=== PATIENT | female | born 1995 | race American Indian/Alaskan Native ===

== ENCOUNTER 2019-01-13 15:19 | Emergency (ER) | payer BC ==
--- NOTE | 2019-01-13 17:57 | Emergency Department Report ---
Chief Complaint: Abdominal Pain Stated Complaint: BLOOD IN STOOL/RT SIDE BACK PAIN Time Seen by Provider: 01/13/19 17:56 - HPI History of Present Illness: bloody stool r flank pain rx vitamin pmh none psh none lmp end dec mse completed MSE screening note: Focused history and physical exam performed. Due to findings the following was ordered: ED Disposition for MSE Condition: Stable Instructions: Abdominal Pain (ED) Referrals: AYDIN GREEN MD [Primary Care Provider] - 3-5 Days
[2019-01-13 18:28] LABS: Hematocrit 41.6 % (30.3-42.9); Hemoglobin 14.2 gm/dl (10.1-14.3); Mean Corpuscular HGB Conc 34 % (30-34); Mean Corpuscular Volume 91 fl (79-97); Platelet Count 359 K/mm3 (140-440); Red Blood Count 4.57 M/mm3 (3.65-5.03); Red Cell Distribution Width 12.8 % (13.2-15.2)
[2019-01-13 18:32] LABS: Bacteria,Urine 1+ /HPF (Negative); Bilirubin,Urine NEG (Negative); Blood,Urine NEG (Negative); Color,Urine Yellow (Yellow); Mucus,Urine FEW /HPF; Protein,Urine <15 mg/dL mg/dL (Negative); Urobilinogen,Urine < 2.0 mg/dL (<2.0)
[2019-01-13 18:36] LABS: HCG Qualitative,Urine Negative (Negative)
[2019-01-13 18:42] LABS: Alanine Aminotransferase 12 units/L (7-56); Albumin 4.5 g/dL (3.9-5); BUN/Creatinine Ratio 11; Blood Urea Nitrogen 8 mg/dL (7-17); Calcium 9.3 mg/dL (8.4-10.2); Hemolysis Index 5
--- NOTE | 2019-01-13 20:30 | Emergency Department Report ---
ED Abdominal Pain HPI - General Chief Complaint: Abdominal Pain Stated Complaint: BLOOD IN STOOL/RT SIDE BACK PAIN Time Seen by Provider: 01/13/19 17:56 Source: patient Mode of arrival: Ambulatory Limitations: No Limitations - History of Present Illness Initial Comments: pt is a 24 y/o aaf who presents for blood streak to stool x 1 today, pt deneis fever or chills no n/v not sure if hx of hemorrhoids no bleeding since initial episode this am, pt is tolerating po intake without symptoms at this time. pt appears well well hydrated nontoxic no abd tenderness MD Complaint: other (blood to stool this am x 1 ) Onset/Timin -: days(s) Radiation: none Migration to: no migration Severity: mild Severity scale (0 -10): 1 Consistency: other (once ) Improves With: nothing Worsens With: nothing Context: other (blood in stool x 1 no other symptoms ) Associated Symptoms: denies: nausea, vomiting, diarrhea, fever, chills, constipation, dysuria, hematemesis, hematochezia, melena, hematuria, anorexia, syncope Treatments Prior to Arrival: NSAIDs (1 one on yesterday no hx of problem with nsaids ) - Related Data LMP Date: 01/05/19 Previous Rx's Medication Instructions Recorded Last Taken Type HYDROcodone/APAP 5-325 [[place] 1 each PO Q6HR PRN #20 tablet 08/25/18 Unknown Rx 5/325] Ibuprofen [Motrin] 800 mg PO Q8HR PRN #30 tablet 08/25/18 Unknown Rx Polyethylene Glycol 3350 [Miralax 17 gm PO BID PRN #14 packet 01/13/19 Unknown Rx 3350] Allergies Allergy/AdvReac Type Severity Reaction Status Date / Time No Known Allergies Allergy Verified 08/23/18 22:56 ED Review of Systems ROS: Stated complaint: BLOOD IN STOOL/RT SIDE BACK PAIN Other details as noted in HPI Constitutional: denies: chills, fever Eyes: denies: eye pain, eye discharge, vision change ENT: denies: ear pain, throat pain Respiratory: denies: cough, shortness of breath, wheezing Cardiovascular: denies: chest pain, palpitations Endocrine: no symptoms reported Gastrointestinal: denies: abdominal pain, nausea, vomiting, diarrhea, constipation, hematemesis, melena, hematochezia Genitourinary: denies: urgency, dysuria, discharge Musculoskeletal: denies: back pain, joint swelling, arthralgia Skin: denies: rash, lesions Neurological: denies: headache, weakness, paresthesias Psychiatric: denies: anxiety, depression Hematological/Lymphatic: denies: easy bleeding, easy bruising ED Past Medical Hx - Past Medical History Previous Medical History?: No Hx Hypertension: No Hx Heart Attack/AMI: No Hx Congestive Heart Failure: No Hx Diabetes: No Hx Deep Vein Thrombosis: No Hx Renal Disease: No Hx Sickle Cell Disease: No Hx Seizures: No Hx Asthma: No Hx COPD: No - Surgical History Past Surgical History?: No - Social History Smoking Status: Never Smoker Substance Use Type: Alcohol - Medications Home Medications: Home Medications Medication Instructions Recorded Confirmed Last Taken Type HYDROcodone/APAP 5-325 [[place] 1 each PO Q6HR PRN #20 tablet 08/25/18 Unknown Rx 5/325] Ibuprofen [Motrin] 800 mg PO Q8HR PRN #30 tablet 08/25/18 Unknown Rx Polyethylene Glycol 3350 [Miralax 17 gm PO BID PRN #14 packet 01/13/19 Unknown Rx 3350] ED Physical Exam - General Limitations: No Limitations General appearance: alert, in no apparent distress - Head Head exam: Present: atraumatic, normocephalic - Eye Eye exam: Present: normal appearance, PERRL, EOMI Pupils: Present: normal accommodation - ENT ENT exam: Present: normal exam, mucous membranes moist - Neck Neck exam: Present: normal inspection - Respiratory Respiratory exam: Present: normal lung sounds bilaterally. Absent: respiratory distress - Cardiovascular Cardiovascular Exam: Present: regular rate, normal rhythm, normal heart sounds. Absent: systolic murmur, diastolic murmur, rubs, gallop - GI/Abdominal GI/Abdominal exam: Present: soft, normal bowel sounds. Absent: distended, tenderness, guarding, rebound, rigid, mass, bruit, hernia - Rectal Rectal exam: Present: deferred - External exam: Present: other (deferre ) - Extremities Exam Extremities exam: Present: normal inspection, full ROM, normal capillary refill. Absent: tenderness, pedal edema, joint swelling - Back Exam Back exam: Present: normal inspection, full ROM. Absent: tenderness, CVA tenderness (R), CVA tenderness (L), muscle spasm, paraspinal tenderness, vertebral tenderness, rash noted - Neurological Exam Neurological exam: Present: alert, oriented X3, CN II-XII intact, normal gait, reflexes normal - Psychiatric Psychiatric exam: Present: normal affect, normal mood - Skin Skin exam: Present: warm, dry, intact, normal color. Absent: rash ED Medical Decision Making - Lab Data Result diagrams: 01/13/19 18:17 01/13/19 18:17 Labs 01/13/19 01/13/19 01/13/19 18:16 18:17 18:17 WBC 6.4 RBC 4.57 Hgb 14.2 Hct 41.6 MCV 91 MCH 31 MCHC 34 RDW 12.8 L Plt Count 359 Sodium 141 Potassium 4.1 Chloride 101.9 Carbon Dioxide 28 Anion Gap 15 BUN 8 Creatinine 0.7 Estimated GFR > 60 BUN/Creatinine Ratio 11 Glucose 98 Calcium 9.3 Total Bilirubin 0.40 AST 17 ALT 12 Alkaline Phosphatase 49 Total Protein 7.3 Albumin 4.5 Albumin/Globulin Ratio 1.6 Urine Color Yellow Urine Turbidity Clear Urine pH 6.0 Ur Specific [place] 1.023 Urine Protein <15 mg/dl Urine Glucose (UA) Neg Urine Ketones Neg Urine Blood Neg Urine Nitrite Neg Urine Bilirubin Neg Urine Urobilinogen < 2.0 Ur Leukocyte Esterase Tr Urine WBC (Auto) 5.0 Urine RBC (Auto) 2.0 U Epithel Cells (Auto) 1.0 Urine Bacteria (Auto) 1+ Urine Mucus Few Urine HCG, Qual Negative - Radiology Data Radiology results: report reviewed, image reviewed Fluoro Time In Minutes: PROCEDURE: XR ABDOMEN 1V AP TECHNIQUE: Supine abdomen HISTORY: abd pain COMPARISONS: FINDINGS: Moderate amount of stool and gas within the colon. No dilated small bowel loops are identified. No signs for free air on the view obtained. No abnormal calcifications noted. IMPRESSION: Nonobstructive bowel gas pattern. This document is electronically signed by Gil Nelson MD., January 13 2019 09:03:46 PM ET Transcribed By: LINNEA Dictated By: SUNSHINE NELSON MD Electronically Authenticated By: SUNSHINE NELSON MD Signed Date/Time: 01/13/192104 - Medical Decision Making kub: nonobstructive bowel pattern, labs normal, plan Miralax po prn, high fiber diet , followup with pcp in 2-3 days return to ed if symptoms worsen, Critical care attestation.: If time is entered above; I have spent that time in minutes in the direct care of this critically ill patient, excluding procedure time. ED Disposition Clinical Impression: Abdominal pain Qualifiers: Abdominal location: unspecified location Qualified Code(s): R10.9 - Unspecified abdominal pain Disposition: TO HOME OR SELFCARE Is pt being admited?: No Does the pt Need Aspirin: No Condition: Stable Instructions: Abdominal Pain (ED), High Fiber Diet (ED) Prescriptions: Polyethylene Glycol 3350 [Miralax 3350] 17 gm PO BID PRN #14 packet PRN Reason: Constipation Referrals: AYDIN GREEN MD [Primary Care Provider] - 3-5 Days Forms: Work/School Release Form(ED) Time of Disposition: 21:26
--- NOTE | 2019-01-13 21:05 | XRay Report ---
PROCEDURE: XR ABDOMEN 1V AP TECHNIQUE: Supine abdomen HISTORY: abd pain COMPARISONS: FINDINGS: Moderate amount of stool and gas within the colon. No dilated small bowel loops are identified. No si gns for free air on the view obtained. No abnormal calcifications noted. IMPRESSION: Nonobstructive bowel gas pattern. This document is electronically signed by Gil Valdez MD., January 13 2019 09:03:46 PM ET
[2019-01-13 21:36] VITALS: BP 122/74
== END 2019-01-13 21:35 | disposition home or self-care (01) ==
LOC: ED 15:19
DX: R10.9 Unspecified abdominal pain (principal); K92.1 Melena
CPT/HCPCS: 36415; 74018; 80053; 81001; 81025; 85027